=== PATIENT | male | born 1955 | race Caucasian/White ===

== ENCOUNTER 2017-10-04 07:24 | Emergency (ER) | payer MEDICAID ==
[~2017-10-04] VITALS: Ht 165.1 cm; Wt 90.7 kg
[~2017-10-04 07:24] MED LIST: ASMANEX PO; COZ50 PO; FLE10 PO; IND50 PO; NEU300 PO; VENTOLIN HFA INH; VOL50 PO
[2017-10-04 07:29] VITALS: Ht 165.1 cm; Wt 90.7 kg
[2017-10-04 08:32] LABS: BASOPHIL % 0.4 % (0-2); PLATELET COUNT 209 x10^3mcL (130-400); RED CELL DISTRIBUTION WIDTH 13.7 % (11.5-14.5)
[2017-10-04 08:37] LABS: CARBON DIOXIDE 28.8 mmol/L (21-32); CHLORIDE SERUM 107 mmol/L (98-107); GFR1 > 60 mL/min; GLUCOSE SERUM 104 mg/dL (74-106); POTASSIUM SERUM 3.5 mmol/L (3.5-5.1); SODIUM SERUM 142 mmol/L (136-145)
[2017-10-04 08:44] LABS: ALKALINE PHOSPHATASE 94 U/L (46-116); ALT/SGPT 18 U/L (16-63); AST/SGOT 15 U/L (15-37); BILIRUBIN TOTAL 0.4 mg/dL (0.20-1.00); TOTAL PROTEIN, SERUM 6.5 g/dL (6.4-8.2)
[2017-10-04 08:46] LABS: ALBUMIN 3.1 g/dL (3.4-5.0)
[2017-10-04 09:26] VITALS: BP 159/77
== END 2017-10-04 09:26 | disposition home or self-care (01) ==
LOC: ED 07:24
PROVIDERS: Emergency Medicine
DX: M79.1 Myalgia (principal); J45.909 Unspecified asthma, uncomplicated; M06.9 Rheumatoid arthritis, unspecified; Z88.5 Allergy status to narcotic agent; Z88.6 Allergy status to analgesic agent
CPT/HCPCS: 36415; J2270

== ENCOUNTER 2017-11-21 15:23 | Observation (INO) | payer MEDICAID ==
[~2017-11-21] VITALS: Ht 167.6 cm; Wt 107.5 kg
[2017-11-21 16:30] LABS: BASOPHIL % 0.5 % (0-2); PLATELET COUNT 258 x10^3mcL (130-400); RED CELL DISTRIBUTION WIDTH 13.5 % (11.5-14.5)
[2017-11-21 16:43] LABS: CARBON DIOXIDE 30.6 mmol/L (21-32); CHLORIDE SERUM 109 mmol/L (98-107); GFR1 > 60 mL/min; GLUCOSE SERUM 105 mg/dL (74-106); SODIUM SERUM 146 mmol/L (136-145)
[2017-11-21 16:56] LABS: ALKALINE PHOSPHATASE 95 U/L (46-116); ALT/SGPT 27 U/L (16-63); AST/SGOT 13 U/L (15-37); BILIRUBIN TOTAL 0.23 mg/dL (0.20-1.00); T4(THYROXINE) 4.9 ug/dL (4.7-13.3); TOTAL PROTEIN, SERUM 6.6 g/dL (6.4-8.2)
[2017-11-21 17:01] LABS: ALBUMIN 2.9 g/dL (3.4-5.0)
[2017-11-21 18:19] LABS: AMPHETAMINE QUAL UR NONE DETECTED (See below)
[2017-11-21] MEDS ORDERED: NOR10T PO (19:40)
[2017-11-21 20:39] VITALS: BP 190/65
[2017-11-21 21:10] VITALS: BP 190/65
[2017-11-21 23:30] VITALS: BP 153/80
[2017-11-22 05:43] VITALS: BP 147/66
[2017-11-22 07:02] LABS: BASOPHIL % 0.5 % (0-2); PLATELET COUNT 241 x10^3mcL (130-400); RED CELL DISTRIBUTION WIDTH 13.8 % (11.5-14.5)
[2017-11-22 07:57] LABS: T4(THYROXINE) 5.3 ug/dL (4.7-13.3)
[2017-11-22 08:17] VITALS: BP 165/76
[2017-11-22 12:16] VITALS: BP 159/71
[2017-11-22 13:48] LABS: ERYTHROCYTE SED RATE 18 mm/hr (0-20)
[2017-11-22 15:28] VITALS: BP 159/71
[2017-11-22 16:09] VITALS: BP 159/71
[2017-11-23 07:19] LABS: RAPID PLASMA REAGIN Non Reactive (Non Reactive)
[2017-11-23 09:19] LABS: RHEUMATOID ARTHRITIS FACTOR <10.0 IU/mL (0.0-13.9)
== END 2017-11-22 18:43 | disposition home or self-care (01) | DRG 54 ==
LOC: ED 15:23 → DU 19:57
PROVIDERS: Emergency Medicine; Internal Medicine
DX: F07.81 Postconcussional syndrome (principal); G93.41 Metabolic encephalopathy; G62.9 Polyneuropathy, unspecified; I10 Essential (primary) hypertension; J45.909 Unspecified asthma, uncomplicated; Z96.643 Presence of artificial hip joint, bilateral; Z85.46 Personal history of malignant neoplasm of prostate
CPT/HCPCS: 86431; G0378; G0480; J2270; Q0092

== ENCOUNTER 2018-03-12 09:21 | Emergency (ER) | payer OTHER, MEDICAID ==
[~2018-03-12] VITALS: Ht 167.6 cm; Wt 113.4 kg
[~2018-03-12 09:21] MED LIST changes: +NOR10T PO
[2018-03-12 09:31] VITALS: Ht 167.6 cm; Wt 113.4 kg
[2018-03-12 10:30] LABS: BASOPHIL % 0.6 % (0-2); PLATELET COUNT 226 x10^3mcL (130-400); RED CELL DISTRIBUTION WIDTH 13.9 % (11.5-14.5)
[2018-03-12 10:39] LABS: CALCIUM 7.9 mg/dL (8.5-10.1); CARBON DIOXIDE 26.4 mmol/L (21-32); CHLORIDE SERUM 106 mmol/L (98-107); GFR1 > 60 mL/min; GLUCOSE SERUM 90 mg/dL (74-106); POTASSIUM SERUM 3.7 mmol/L (3.5-5.1); SODIUM SERUM 140 mmol/L (136-145)
[2018-03-12 10:44] LABS: ALBUMIN 3.2 g/dL (3.4-5.0); ALKALINE PHOSPHATASE 91 U/L (46-116); ALT/SGPT 37 U/L (16-63); AST/SGOT 25 U/L (15-37); BILIRUBIN TOTAL 0.57 mg/dL (0.20-1.00); HDL CHOLESTEROL 52 mg/dL (40-60); TOTAL PROTEIN, SERUM 7.1 g/dL (6.4-8.2)
[2018-03-12 11:48] LABS: AMPHETAMINE QUAL UR POSITIVE (See below)
[2018-03-12 13:17] VITALS: BP 150/90
== END 2018-03-12 14:31 | disposition home or self-care (01) ==
LOC: ED 09:21
PROVIDERS: Emergency Medicine
DX: F15.10 Other stimulant abuse, uncomplicated (principal); R41.82 Altered mental status, unspecified; L03.211 Cellulitis of face; J45.909 Unspecified asthma, uncomplicated; M19.90 Unspecified osteoarthritis, unspecified site; Z98.890 Other specified postprocedural states; Z88.1 Allergy status to other antibiotic agents; Z88.6 Allergy status to analgesic agent
CPT/HCPCS: 36415; 82962

== ENCOUNTER 2018-09-13 14:21 | Emergency (ER) | payer OTHER, MEDICAID ==
[~2018-09-13] VITALS: Ht 165.1 cm; Wt 84.4 kg
[2018-09-13 14:37] VITALS: Ht 165.1 cm; Wt 84.4 kg
[2018-09-13 16:58] LABS: BASOPHIL % 0.7 % (0-2); PLATELET COUNT 219 x10^3mcL (130-400); RED CELL DISTRIBUTION WIDTH 14.3 % (11.5-14.5)
[2018-09-13 17:10] LABS: CALCIUM 8.5 mg/dL (8.5-10.1); CARBON DIOXIDE 28.2 mmol/L (21-32); CHLORIDE SERUM 108 mmol/L (98-107); CREATININE SERUM 0.7 mg/dL (0.7-1.3); GFR1 > 60 mL/min; GLUCOSE SERUM 99 mg/dL (74-106); POTASSIUM SERUM 4.1 mmol/L (3.5-5.1); SODIUM SERUM 144 mmol/L (136-145)
[2018-09-13 17:22] LABS: ALKALINE PHOSPHATASE 94 U/L (46-116); ALT/SGPT 40 U/L (16-63); AST/SGOT 30 U/L (15-37); BILIRUBIN TOTAL 0.25 mg/dL (0.20-1.00); CHOLESTEROL 149 mg/dL (<200); HDL CHOLESTEROL 49 mg/dL (40-60); MAGNESIUM 2.2 mg/dL (1.8-2.4); T4(THYROXINE) 6.1 ug/dL (4.7-13.3); TOTAL PROTEIN, SERUM 6.7 g/dL (6.4-8.2)
[2018-09-13 17:23] LABS: ALBUMIN 3.1 g/dL (3.4-5.0)
[2018-09-13 18:43] VITALS: BP 161/89
== END 2018-09-13 18:35 | disposition home or self-care (01) ==
LOC: ED 14:21
PROVIDERS: Emergency Medicine
DX: R53.1 Weakness (principal); M19.90 Unspecified osteoarthritis, unspecified site; J45.909 Unspecified asthma, uncomplicated; Z85.830 Personal history of malignant neoplasm of bone; Z85.46 Personal history of malignant neoplasm of prostate; Z88.1 Allergy status to other antibiotic agents; Z88.6 Allergy status to analgesic agent
CPT/HCPCS: 36415; Q0092

== ENCOUNTER 2018-09-15 13:06 | Inpatient (IN) | payer OTHER, MEDICAID ==
[~2018-09-15] VITALS: Ht 167.6 cm; Wt 95.3 kg
[2018-09-15 13:15] VITALS: Ht 167.6 cm; Wt 95.3 kg
--- NOTE | 2018-09-15 13:25 | NUR ---
PT WHEELED TO RM T1 WITH WALKER AND MULTIPLE BAGS OF PERSONAL BELONGINGS THAT APPEAR DIRTY. PT WEARING SANDALS. FEET ARE EXPOSED AND VERY DIRTY. ASKED PT WHAT HIS NAME IS, PT REPLIED "I DON'T KNOW. GIVE ME A BLANKET, I'M COLD." ASKED PT WHAT HIS BIRTHDAY IS, PT STATED "I DON'T KNOW I'M TRYING TO REMEMBER." INFORMED PT I NEED A URINE SAMPLE, PT STATED "I NEED SOME WATER FIRST." PER AGRI BUSINESS AGENT, PT "NOT ANSWERING ANY QUESTIONS." PT APPEARS PURPOSEFUL; EYES OPEN SPONTANEOUSLY; BREATHING IS E/U. PT APPEARS TO BE PURPOSEFULLY NOT ANSWERING HIS NAME AND . HE ANSWERS OTHER QUESTIONS APPROPRIATELY AND VERBALIZES NEEDS APPRORPIATELY.
--- NOTE | 2018-09-15 13:34 | NUR ---
PT REQUESTED URINAL. PT IS UNBUTTONING AND UNZIPPERING PANTS WITHOUT ASSISTANCE.
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
--- NOTE | 2018-09-15 13:37 | NUR ---
ASKED PT WHAT HIS NAME IS, PT REPLIED "LOOK AT MY PAPERWORK." PT ROLLED OVER TO L SIDE, CLOSED HIS EYES AND ASKED FOR A BLANKET.
--- NOTE | 2018-09-15 13:38 | NUR ---
DURING IV INSERTION, PT STATED "PLEASE DON'T LET IT HURT."
--- NOTE | 2018-09-15 13:41 | NUR ---
PT KICKED OFF SANDALS AND ASKED FOR A BLANKET
--- NOTE | 2018-09-15 13:41 | NUR ---
DR SCALES AT BEDSIDE FOR MSE
--- NOTE | 2018-09-15 13:51 | NUR ---
PCXR AT BEDSIDE
[2018-09-15 14:09] LABS: microscopic required? NO
[2018-09-15 14:23] LABS: BASOPHIL % 0.3 % (0-2); PLATELET COUNT 222 x10^3mcL (130-400); RED CELL DISTRIBUTION WIDTH 14.3 % (11.5-14.5)
[2018-09-15 14:32] LABS: CALCIUM 8.2 mg/dL (8.5-10.1); CARBON DIOXIDE 29.6 mmol/L (21-32); CHLORIDE SERUM 107 mmol/L (98-107); CREATININE SERUM 0.9 mg/dL (0.7-1.3); GFR1 > 60 mL/min; GLUCOSE SERUM 102 mg/dL (74-106); POTASSIUM SERUM 3.9 mmol/L (3.5-5.1); SODIUM SERUM 143 mmol/L (136-145)
[2018-09-15 14:37] LABS: ALBUMIN 3.1 g/dL (3.4-5.0); ALKALINE PHOSPHATASE 90 U/L (46-116); ALT/SGPT 39 U/L (16-63); AST/SGOT 13 U/L (15-37); BILIRUBIN TOTAL 0.3 mg/dL (0.20-1.00); TOTAL PROTEIN, SERUM 6.5 g/dL (6.4-8.2)
--- NOTE | 2018-09-15 15:00 | NUR ---
PT SLEEPING, CHEST RISE EASY AND REGULAR; NAD NOTED
[2018-09-15 15:36] LABS: urine erythrocyte NEGATIVE (NEGATIVE)
[2018-09-15 15:45] LABS: AMPHETAMINE QUAL UR NONE DETECTED (See below)
--- NOTE | 2018-09-15 15:59 | NUR ---
PT SLEEPING, REMAINS ON FULL MONITORS. CHEST RISE EASY AND REGULAR. NAD NOTED
--- NOTE | 2018-09-15 16:12 | NUR ---
REPORT GIVEN TO DIAMOND WOOD
--- NOTE | 2018-09-15 16:17 | NUR ---
REPORT FROM NINA GAYLE TO ASSUME CARE OF PT
--- NOTE | 2018-09-15 16:39 | NUR ---
PT MEDICATED PER ORDER. PT STS HE DOES NOT KNOW HIS NAME BUT CONFIRMED HIS NAME AND WHEN TOLD. PT VERBALIZED UNDERSTANDING OF MEDICATION TEACHING. PT REQUESTED URINAL. NO S/S OF DISTRESS. RESP E/U. WILL CONTINUE TO MONITOR.
--- NOTE | 2018-09-15 17:16 | NUR ---
PT MEDICATED PER ORDER. PT ABLE TO VERBALIZED NAME AND . VERBALIZED UNDERSTANDING OF MEDICATION TEACHING SEE EMAR FOR DETAILS.
[2018-09-15 17:27] LABS: T3 TOTAL 1.04 ng/mL
[2018-09-15 17:36] LABS: CHOLESTEROL/HDL RATIO 3.5; PHOSPHOROUS 3.6 mg/dL (2.5-4.9)
--- NOTE | 2018-09-15 17:49 | NUR ---
REPORT GIVEN TO NINA CARTER TO ASSUME CARE OF PT
--- NOTE | 2018-09-15 17:57 | NUR ---
PT TRANSFERRED TO TELE FLOOR ACCOMPANIED BY NURSE AND EMT. NO S/S OF DISTRESS. RESP E/U. IV SITE PATENT NO S/S OF INFILTRATION. RN MADE AWARE OF MEDICATION STILL INFUSING.
[2018-09-15 18:01] LABS: FREE T4 0.8 ng/dL (0.76-1.46); T4(THYROXINE) 5.7 ug/dL (4.7-13.3)
[2018-09-15 18:27] VITALS: BP 169/51
--- NOTE | 2018-09-15 18:30 | NUR ---
RECEIVED PT FROM ED VIA KAITLYN. ORIENTED PT TO ROOM AND SURROUNDINGS. IV NOTED TO RH PATENT AND INTACT. TELE 5 PLACED ON PT READING SBR. INSTRUCTED PT ON THE USE OF CALL LIGHT FOR ASSISTANCE. ENDORSED PT TO PRIMARY NURSE RAUL
--- NOTE | 2018-09-15 18:50 | NUR ---
PT RESTING IN BED, AOX4, RESP E/U ON RA. PT REPORTED GENERALIZED TIGHTNESS THROUGHTOUT BODY W/ FEELING SOB AT TIMES, DENIES PAIN, OTHERWISE NO ACUTE DISTRESS NOTED AT THIS TIME. COMFORT MEASURES IMPLMENTED, HOB ELEVATED 30 DEGREES. REQUESTED FOR FOOD, ON REGULAR DIET, SANDWICHES PROVIDED. BED IN LOWEST POSITION AND CALL LIGHT WITHIN REACH. WILL ENDORSE TO ONCOMING NURSE.
--- NOTE | 2018-09-15 19:30 | NUR ---
RECIEVED PT IN NO ACUTE DISTRESS. AOX2-3. TELE #5, HR 55. BREATHING E/U ON RA, DENIES SOB. IV TO RH, NO REDNESS/SWELLING. BED IN LOWEST POSITION, 2 SIDE RAILS UP, CALL LIGHT IN REACH. INSTRUCTED TO CALL FOR ASSISTANCE.
[2018-09-15 19:57] VITALS: BP 148/72
--- NOTE | 2018-09-16 02:27 | NUR ---
RESTING IN BED WITH EYES CLOSED. BREATHING E/U. NO ACUTE DISTRESS NOTED. WILL CONTINUE TO MONITOR.
[2018-09-16 05:53] VITALS: BP 173/79
--- NOTE | 2018-09-16 07:02 | NUR ---
DR. MATTSON NOTIFIED OF BP 172/79 HR 45. MEDICATED WITH NEW ORDER HYDRALZINE PO PER EMAR. NO ACUTE DISTRESS NOTED WILL ENDORSE TO ONCOMING RN
--- NOTE | 2018-09-16 07:10 | NUR ---
RECEIVED REPORT FROM DESMOND WOOD. PATIENT SLEEPING COMFORTABLY IN BED WITH ALL NEEDS MET. IV TO RT HAND IS PATENT AND INFUSING NS @ 75 ML/HR. NO REDNESS OR PAIN. TELE # [address] NO INDICATION OF CHEST PAIN. PT ON ROOM AIR. NO DISTRESS NOTED. ALL QUESTIONS AND CONCERNS ADDRESSED.
[2018-09-16 07:25] VITALS: BP 183/81
[2018-09-16 10:34] VITALS: BP 156/70
[2018-09-16 11:50] VITALS: BP 163/93
[2018-09-16 14:54] LABS: BASOPHIL % 0.5 % (0-2); PLATELET COUNT 207 x10^3mcL (130-400); RED CELL DISTRIBUTION WIDTH 14.4 % (11.5-14.5)
[2018-09-16 15:09] LABS: CALCIUM 8.3 mg/dL (8.5-10.1); CHLORIDE SERUM 109 mmol/L (98-107); CREATININE SERUM 1.1 mg/dL (0.7-1.3); GFR1 > 60 mL/min; GLUCOSE SERUM 118 mg/dL (74-106); MAGNESIUM 2.1 mg/dL (1.8-2.4); PHOSPHOROUS 3.2 mg/dL (2.5-4.9); SODIUM SERUM 145 mmol/L (136-145)
[2018-09-16 16:30] VITALS: BP 155/65
--- NOTE | 2018-09-16 18:00 | NUR ---
SPOKE WITH DR PHILLIPS TO REQUEST DIET ORDER AND AM LABS FOR 09/17/18 AFTER TRANSFER TO [facility]. ALSO NOTIFIED OF PT BP 155/65. DR PHILLIPS OK.
--- NOTE | 2018-09-16 19:30 | NUR ---
REPORT GIVEN TO NEREYDA WOOD. PATIENT RESTING COMFORTABLY IN BED. ALL NEEDS MET. SALINE LOCK TO RT HAND IS PATENT AND INTACT. NO REDNESS OR PAIN. PT ON ROOM AIR. NO DISTRESS NOTED. ALL QUESTIONS AND CONCERNS ADDRESSED.
--- NOTE | 2018-09-16 19:30 | NUR ---
RECIEVED PATIENT AT START OF SHIFT A.O X4, NO SOB ON RA, LUNGS DIMINISHED BILATERALLY. MED-SURG, SOME EDEMA NOTED TO RIGHT HAND, IV TO RH IS SALINE LOCKED, NO ERYTHEMA, FLUSHED AND PATENT. SCAB ON RH NOTED. BLE TRACE EDEMA. ABRASION TO L LEG NOTED. ISLAND DRESSING APPLIED. BS ACTIVE. ABDOMEN IS FIRM AND ROUND. BED LOCKED AND IN LOWEST POSIITON. CALL LIGHT AND BEDSIDE TABLE WITHIN REACH. SAFETY AND USE OF CALL LIGHT REINFORCED.
--- NOTE | 2018-09-16 20:32 | NUR ---
PATIENT REPORTING BLE LEG PAIN RATED 6/10. WILL MEDICATE PER EMAR.
[2018-09-16 20:59] VITALS: BP 147/72
--- NOTE | 2018-09-16 21:32 | NUR ---
PATIENT GIVEN TYLENOL PER EMAR FOR REPORT OF 6/10 LEG PAIN.
--- NOTE | 2018-09-17 01:23 | NUR ---
PATIENT GIVEN NORCO PER EMAR FOR REPORT OF 6/10 PAIN TO HIS LEGS.
[2018-09-17 05:47] VITALS: BP 143/63
--- NOTE | 2018-09-17 06:25 | NUR ---
PATIENT SLEPT WELL THROUGH THE NIGHT. DENIES PAIN THIS MORNING. IV INFUSING ZOSYN PER EMAR WITHOUT ERYTHEMA OR INFILTRATION. BED LOCKED AND IN LOWEST POSITION. CALL LIGHT AND BEDSIDE TABLE WITHIN REACH. WILL ENDORSE CARE TO DAYSHIFT NURSE.
[2018-09-17 07:03] LABS: BASOPHIL % 0.7 % (0-2); PLATELET COUNT 217 x10^3mcL (130-400); RED CELL DISTRIBUTION WIDTH 14.2 % (11.5-14.5)
--- NOTE | 2018-09-17 07:15 | NUR ---
RECEIVED PT IN BED, AXOX4, MARTINIQUAIS, VERBAL, CALM AND COPPERATIVE, PERRLA, NO REDNESS/DRAINAGE, NO FACIAL DROOP/SLURRED SPEECH, REPORTED NO PAIN/BRYSON/PRESSURE/CP/DISCOMFORT, REPORTED NO N/V/D AT THIS TIME, ON RA, LUNGS DIM BLL, CRACKLE TO LL, IN NO ACUTE RESP DISTRESS, CHEST RISE SYMMETRICALLY, MED-SURG, AMB WITH ASSIST, ABLE TO MOVE ALL EXTREMITIES, ABD ROUND AND NON-TENDER TO TOUCH, RELIEF WITH REPOSITION AND RELAXATION, CONTINENT, TO BACK AND CHEST, SKIN D/W/I, ABRASION TO LE, DRESSING C/D/I, MULTIPLES SCABS TO RUE, IV TO RAC PATENT AND INFILTRATION WELL, PALP PULSES, CAP REFIL < 2 SECS, ALL NEEDS MET, SAFETY PRECAUTION FOLLOWED, CONTINUE TO MONITOR
[2018-09-17 07:20] LABS: CALCIUM 8.3 mg/dL (8.5-10.1); CARBON DIOXIDE 27.6 mmol/L (21-32); CHLORIDE SERUM 108 mmol/L (98-107); CREATININE SERUM 0.9 mg/dL (0.7-1.3); GFR1 > 60 mL/min; GLUCOSE SERUM 101 mg/dL (74-106); MAGNESIUM 2.1 mg/dL (1.8-2.4); PHOSPHOROUS 3.5 mg/dL (2.5-4.9); SODIUM SERUM 143 mmol/L (136-145)
[2018-09-17 08:18] VITALS: BP 125/66
--- NOTE | 2018-09-17 09:54 | NUR ---
PT IN BED, IN NO ACUTE RESP DISTRESS, AM MED GIVEN PER MD ORDER VIA EMAR, TAKEN WELL, NO ASE NOTED AT THIS TIME, ALL NEEDS MET, SAFETY PROTOCOL FOLLOWED, CONTINUE TO MONITOR
--- NOTE | 2018-09-17 14:00 | NUR ---
PT SLEEPING IN BED, LYING TO (L) SIDE, IN NO ACUTE RESP DISTRESS, ALL NEEDS MET AT THIS TIME, SAFETY PROTOCOL FOLLOWED, CONTINUE TO MONITOR
[2018-09-17 16:51] VITALS: BP 131/59
--- NOTE | 2018-09-17 18:03 | NUR ---
PT IN BED, AXOX4, VERBAL, IN NO ACUTE RESP DISTRESS, DENIED PAIN/CP/PRESSURE, DENIED N/V/D/DIZZINESS, NO FACIAL DROOP/SLURRED SPEECH NOTED, RESP EVEN AND NON-LABORED, CHEST RISE SYMMETRICALLY, ABD ROUND AND NON-TENDER TO TOUCH, BS ACTIVE X 4, ABLE TO MOVE ALL EXTREMITIES, SKIN D/W/I, PALP PULSES, CAP REFILL < 2 SECS, AMBULATORY WITH ASSIST, CONTINENT, ALL NEEDS MET AT THIS TIME, SAFETY PROTOCOL FOLLOWED, WILL ENDORSE TO NEXT COMING RN
--- NOTE | 2018-09-17 19:20 | NUR ---
RECEIVED PT LAYING IN BED, NO ACUTE DISTRESS OBSERVED, DENIES PAIN OR DISCOMFORT AT THIS TIME. AA/OX4, ABLE TO MAKE NEEDS KNOWN, SPEECH CLEAR AND APPROPRIATE. MED-SURG, NO TELE, NO CP. PULSES PRESENT AND EQUAL THROUGHOUT, NO EDEMA, PT ON HEP SQ THERAPY. BREATHING ON RA, EVEN AND UNLABORED, DENIES SOB OR DYSPNEA, LUNGS DIM TO BASES, O2 SAT 98% ABD ROUND AND SOFT WITH ACTIVE BOWEL SOUNDS, NO N/V/D. FREELY VOIDS URINE. GENERALIZED WEAKNESS, FWW AT BEDISDE AND WITHIN REACH. ABRASION TO LLE WITH MILD ERYTHEMA, ISLAND DRESSING IN PLACE, CDI. IV TO RW IN PLACE, DRY, PATENT, INTACT, S/L AT THIS TIME, NO PAIN, REDNESS OR SWELLING WHEN FLUSHED WITH NS. COMFORT AND SAFETY MEASURES IN PLACE. ALL NEEDS ASSESSED AND ATTENDED TO. CALL LIGHT WITHIN REACH. WILL CONTINUE TO MONITOR
[2018-09-17 20:46] VITALS: BP 157/74
--- NOTE | 2018-09-17 21:30 | NUR ---
PT C/O 10/08 MID CHEST/EPIGATRIC PAIN AND REQUESTING PAIN MED AT THIS TIME. MEDICATED WITH PRN NORCO PER EMAR.
--- NOTE | 2018-09-18 02:49 | NUR ---
PT LAYING IN BED, BREATHING EVEN AND UNLABORED, NO ACUTE DISTRESS OBSERVED. CALL LIGHT WITHIN REACH. WILL CONTINUE TO MONITOR
[2018-09-18 05:22] VITALS: BP 141/70
--- NOTE | 2018-09-18 06:13 | NUR ---
NO SIGNIFICANT CHANGES TO REPORT, PT COMPLIED WITH NURSING CARE THROUGHOUT THE SHIFT WITH NO ACUTE EVENTS OVERNIGHT. NO ACUTE DISTRESS OBSERVED AT THIS TIME, BREATHING EVEN AND UNLABORED, AROUSABLE TO VERBAL STIMULI. COMFORT AND SAFETY MEASURES MAINTAINED. ALL NEEDS ASSESSED AND ATTENDED TO. CALL LIGHT WITHIN REACH. WILL CONTINUE TO MONITOR AND ENDORSE CARE TO DAY SHIFT NURSE
--- NOTE | 2018-09-18 06:17 | NUR ---
NO SIGNIFICANT CHANGES TO REPORT, PT REMAINS AGITATED AT TIMES. NO ACUTE DISTRESS OBSERVED AT THIS TIME, BREATHING EVEN AND UNLABORED, AROUSABLE TO VERBAL STIMULI. COMFORT AND SAFETY MEASURES MAINTAINED. ALL NEEDS ASSESSED AND ATTENDED TO. CALL LIGHT WITHIN REACH. WILL CONTINUE TO MONITOR AND ENDORSE CARE TO DAY SHIFT NURSE
[2018-09-18 06:47] LABS: BASOPHIL % 0.6 % (0-2); PLATELET COUNT 221 x10^3mcL (130-400); RED CELL DISTRIBUTION WIDTH 14.3 % (11.5-14.5)
[2018-09-18 07:01] LABS: CALCIUM 8.4 mg/dL (8.5-10.1); CARBON DIOXIDE 26.9 mmol/L (21-32); CHLORIDE SERUM 108 mmol/L (98-107); GFR1 > 60 mL/min; GLUCOSE SERUM 98 mg/dL (74-106); MAGNESIUM 2.2 mg/dL (1.8-2.4); PHOSPHOROUS 3.4 mg/dL (2.5-4.9); POTASSIUM SERUM 4.1 mmol/L (3.5-5.1); SODIUM SERUM 144 mmol/L (136-145)
--- NOTE | 2018-09-18 07:50 | NUR ---
RECEIVED PT IN BED, AXOX4, AUSTRIAN, VERBAL, CALM AND COPPERATIVE W/ POC, PERRLA, NO REDNESS/DRAINAGE, NO FACIAL DROOP/SLURRED SPEECH, REPORTED NO PAIN/BRYSON/PRESSURE/CP/DISCOMFORT, REPORTED NO N/V/D AT THIS TIME, ON RA, LUNGS DIM BLL, CRACKLE TO LL, COUGH X 1 W/ SPUTUM, THIN CONSISTENCY, SLIGHTLY YELLOW, NO FOUL ODOR, IN NO ACUTE RESP DISTRESS, CHEST RISE SYMMETRICALLY, MED-SURG, AMB WITH ASSIST, ABLE TO MOVE ALL EXTREMITIES, ABD ROUND AND NON-TENDER TO TOUCH, RELIEF WITH REPOSITION AND RELAXATION, CONTINENT, TO BACK AND CHEST, SKIN D/W/I, ABRASION TO LE, DRESSING C/D/I, MULTIPLES SCABS TO RUE, IV TO RAC PATENT AND INFILTRATION WELL, PALP PULSES, CAP REFIL < 2 SECS, ALL NEEDS MET AT THIS TIME, CALL LIGHT IN REACH, BED AT LOW POSITION, RAILS X 2, CONTINUE TO MONITOR
[2018-09-18 09:14] VITALS: BP 124/44
--- NOTE | 2018-09-18 09:41 | NUR ---
PT IN BED, IN NO ACUTE RESP DISTRESS, AM MEDS GIVEN PER MD ORDER VIA EMAR, TAKEN WELL, NO ASE NOTED AT THIS TIME, AL NEEDS MET, SAFETY PROTOCOL FOLLOWED, CONTINUE TO MONITOR
--- NOTE | 2018-09-18 14:00 | NUR ---
PT IN BED, AXOX4, IN NO ACUTE RESP DISTRESS, NO COUGH AT THIS TIME, ALL NEEDS ADDRESSED, SAFETY PROTOCOL FOLLOWED, CONTINUE TO MONITOR
[2018-09-18 17:34] VITALS: BP 151/79
--- NOTE | 2018-09-18 18:00 | NUR ---
PT IN BED, RESTING WITH EYE CLOSED, AXOX4, VERBAL, IN NO ACUTE RESP DISTRESS, DENIED PAIN/CP/PRESSURE, DENIED N/V/D/DIZZINESS, NO FACIAL DROOP/SLURRED SPEECH NOTED, RESP EVEN AND NON-LABORED, CHEST RISE SYMMETRICALLY, ABD ROUND AND NON-TENDER TO TOUCH, BS ACTIVE X 4, ABLE TO MOVE ALL EXTREMITIES, SKIN D/W/I, PALP PULSES, CAP REFILL < 2 SECS, AMBULATORY WITH ASSIST, CONTINENT, ALL NEEDS ADDRESSED AT THIS TIME, SAFETY PROTOCOL FOLLOWED, CALL LIGHT IN REACH, BED AT LOW POSITION, RAILS X 2, WILL ENDORSE TO NEXT COMING RN
--- NOTE | 2018-09-18 19:30 | NUR ---
RECIEVED PT FROM DAY NURSE. PT RESTING IN BED COMFORTABLY. COMPLAINING OF 8/10 LEG PAIN. A/O X4, CALM AND COOPERATIVE. PALPABLE PULSES, NO EDEMA NOTED. BREATHING EVEN AND UNLABORED ON RA, DENIES SOB. BOWEL SOUNDS ACTIVE X4, TENDERNESS TO PALPATION. ABRASION TO LLE COVERED WITH ISLAND DRESSING CDI. RW IV, CDI. CALL LIGHT WITHIN REACH, BED AT LOWEST POSITION. WILL CONTINUE TO MONITOR.
[2018-09-18 20:46] VITALS: BP 136/62
--- NOTE | 2018-09-18 21:00 | NUR ---
PT COMPLAINING OF LEG PAIN 10/08. MEDICATED WITH NORCO PER ORDER. WILL CONTINUE TO MONITOR.
--- NOTE | 2018-09-19 | NUR ---
PT RESTING IN BED COMFORTABLY WITH EYES CLOSED. NO S/S OF PAIN AT THIS TIME. BREATHING EVEN AND UNLABORED. BED AT LOWEST POSITION. CALL LIGHT WITHIN REACH. WILL CONTINUE TO MONITOR.
[2018-09-19 05:19] VITALS: BP 132/57
--- NOTE | 2018-09-19 05:35 | NUR ---
I HAVE REVIEWED THE DATA COLLECTION BY NINA CLAY: CRISTINA GILL ENTERED ON 09/18-09/19 I CONCUR WITH THE DATA AND ANY EXCEPTIONS OR COMMENTS ARE LISTED BELOW:
[2018-09-19 06:32] LABS: BASOPHIL % 0.8 % (0-2); PLATELET COUNT 204 x10^3mcL (130-400); RED CELL DISTRIBUTION WIDTH 14.5 % (11.5-14.5)
[2018-09-19 06:48] LABS: CALCIUM 8.6 mg/dL (8.5-10.1); CARBON DIOXIDE 29.5 mmol/L (21-32); CHLORIDE SERUM 110 mmol/L (98-107); GFR1 > 60 mL/min; GLUCOSE SERUM 105 mg/dL (74-106); POTASSIUM SERUM 5.4 mmol/L (3.5-5.1); SODIUM SERUM 145 mmol/L (136-145)
--- NOTE | 2018-09-19 06:51 | NUR ---
PT RESTING IN BED COMFORTABLY. NO S/S OF PAIN AT THIS TIME. BREATHING EVEN AND UNLABORED ON RA. NO SIGNIFICANT CHANGES THIS SHIFT. BED AT LOWEST POSITION. CALL LIGHT WITHIN REACH. WILL ENDORSE TO DAY NURSE.
--- NOTE | 2018-09-19 08:01 | NUR ---
HANDOFF REPORT RECEIVED. PATIENT ASLEEP ON ROUNDS. RR-16/MIN. CALL KOVACS WITHIN REACH. BED LOW AND LOCKED.
[2018-09-19 09:24] VITALS: BP 110/68
[2018-09-19] MEDS ORDERED: LIO10 PO (11:12)
[2018-09-19] MEDS ORDERED: NOR5 PO (11:13)
[2018-09-19] MEDS ORDERED: ZITHROMAX TRI-500 MG PO (11:32)
--- NOTE | 2018-09-19 12:12 | NUR ---
DENIES ANYU DYSPNEA OR DYSPNEA. CALL KOVACS WITHIN REACH.
[2018-09-19 13:26] VITALS: BP 110/68
--- NOTE | 2018-09-19 14:00 | NUR ---
SEEN BY SURVEY TECHNICIAN TODAY. PATIENT WANTED TO SPEAK WITH BILLET BED OPERATOR ONLY. CHARGE NURSE BECK MADE AWARE.
--- NOTE | 2018-09-19 17:27 | NUR ---
DENIES ANY DYSPNEA OR PAIN. WATCHING TV. CALL KOVACS WITHIN REACH.
[2018-09-19 17:47] VITALS: BP 176/81
[2018-09-19 18:20] VITALS: BP 136/71
--- NOTE | 2018-09-19 19:15 | NUR ---
HANDOFF REPORT GIVEN TO NINA GUAJARDO.
--- NOTE | 2018-09-19 20:00 | NUR ---
RECEIVED PT IN BED, RESTING. ALERT AND ORIENTED. ABLE TO VERBALIZE NEEDS. RESP. EVEN AND UNLABORED. ON ROOM AIR, NO ACUTE DISTRESS NOTED. DENIES SOB. AFEBRILE AND VITAL SIGNS STABLE.HL TO RFA, INTACT AND PATENT. ABLE TO MOVE ALL EXTS. NO COMPLAINTS OF PAIN OR ANY DISCOMFORT AT THIS TIME. CALL LIGHT WITHIN REACH. WILL CONTINUE TO MONITOR.
[2018-09-19 20:43] VITALS: BP 98/62
--- NOTE | 2018-09-19 21:25 | NUR ---
COMPLAINED OF GEN. BODY PAIN,08/08, REQUESTING PAIN MED, MEDICATED WITH NORCO PO ORDERED. WILL CONTINUE TO MONITOR.
--- NOTE | 2018-09-19 23:40 | NUR ---
IV SITE LEAKING, DISCONTINUED. NEW IV SITE RE-INSERTED TO RT FORE ARM WITH #20G. WILL CONTINUE TO MONITOR.
--- NOTE | 2018-09-19 23:44 | NUR ---
NO COMPLAINTS NOTED AT THIS TIME. DOOZING OFF AND ON. CALL LIGHT WITHIN REACH. WILL CONTINUE TO MONITOR.
--- NOTE | 2018-09-20 02:00 | NUR ---
NO COMPLAINTS NOTED AT THIS TIME. RESTING QUIETLY IN BED, WITH EYES CLOSED, APPEARS ASLEEP, EASILY AROUSABLE.RESP. EVEN AND UNLABORED. NO ACUTE DISTRESS NOTED. CALL LIGHT WITHIN REACH. WILL CONTINUE TO MONITOR.
[2018-09-20 05:39] VITALS: BP 151/61
--- NOTE | 2018-09-20 06:44 | NUR ---
NO COMPLAINTS NOTED AT THIS TIME. DUE MEDS GIVEN ORDERED, MARTHA. WELL. AFEBRILE AND VITAL SIGNS STABLE. DENIES PAIN OR ANY DISCOMFORT. RESP. EVEN AND UNLABORED. ON ROOM AIR, NO ACUTE DISTRESS NOTED. WILL ENDORSE TO INCOMING NURSE.
--- NOTE | 2018-09-20 07:15 | NUR ---
RECEIVED PT FROM NIGHT NURSE. PT IS LAYING DOWN IN BED WITH HOB UP RESTING. RESPIRATIONS EVEN AND UNLABORED ON ROOM AIR. PT LOOKS TO BE IN NO ACUTE DISTRESS AT THIS TIME AND DENIES ANY PAIN. IV SITE PATENT WITH NO SIGNS OF ERYTHEMA OR SWELLING WITH IV H/L. BED IN LOWEST POSITION, CALL LIGHT WITHIN REACH. WILL CONITNUE TO MONITOR.
[2018-09-20 07:41] LABS: BASOPHIL % 0.6 % (0-2); PLATELET COUNT 209 x10^3mcL (130-400)
[2018-09-20 07:54] LABS: RED CELL DISTRIBUTION WIDTH 14.8 % (11.5-14.5)
[2018-09-20 08:44] VITALS: BP 158/78
--- NOTE | 2018-09-20 09:35 | NUR ---
ASSISTED PT TO THE BATHROOM. PT STATED THAT HE FEELS DIZZY WHEN STANDING UP AND FEELS WEAKNESS TO THE LEFT LEG. PT SAT ON THE EDGE OF THE BED BEFORE AMBULATING. BLOOD PRESSURE WHEN SITTING ON THE EDGE OF THE BED IS 175/98. ASSISTED PT BACK TO BED AND PT DENIES ANY DIZZINESS AT THIS TIME BUT STILL COMPALINS OF WEAKNESS. MADE PT COMFORTABLE IN BED. CALL LIGHT WITHIN REACH. WILL CONITNUE TO MONITOR.
--- NOTE | 2018-09-20 14:25 | NUR ---
PT REQUESTING TO GO TO THE RESTROOM. ASSISTED PT TO THE RESTROOM, PT STATES FEELING DIZZY UPON AMBULATION. HELPED PT BACK TO BED AND BLOOD PRESSURE WHEN LAYING DOWN IN 181/77, MAP 112, HR: 62. MADE PT COMFORTABLE IN BED. WILL MEDICATE ACCORDING TO EMAR FOR BLOOD PRESSURE.
--- NOTE | 2018-09-20 15:30 | NUR ---
IV SITE IS SWOLLEN AND PT IS COMPLAINING OF PAIN TO THE IV SITE. IV FLUSHING WELL, PT IS REQUESTING TO HAVE IV REMOVED AND NEW IV INSERTED. REMOVED IV CATHETER, CATHETER FULLY INTACT. WILL REINSERT IV.
[2018-09-20 16:20] VITALS: BP 142/72
[2018-09-20 18:12] VITALS: BP 142/72
--- NOTE | 2018-09-20 18:45 | NUR ---
PT IS LAYING DOWN IN BED WITH HOB UP RESTING. PT LOOKS TO BE IN NO ACUTE DISTRESS AT THIS TIME. RESPIRATIONS EVEN AND UNLABROED ON ROOM AIR. BED IN LOWEST POSITION, CALL LIGHT WITHIN REACH. WILL ENDORSE TO ONCOMING SHIFT.
--- NOTE | 2018-09-20 20:15 | NUR ---
PATIENT RECEIVED RESTING IN BED, RESPIRATION EVEN AND UNLABORED, ON ROOM AIR. SALINE LOCK TO LEFT FOREARM. DENIES PAIN AT THIS TIME. VOIDING FREELY WITHOUT DIFFICULTY. GENERALIZED WEAKNESS. C/O DIZZINESS DURING AMBULATION. DRY ABRASION TO BLE. LBM 09/20/2018. WILL CONTINUE TO MONITOR.
--- NOTE | 2018-09-20 21:04 | NUR ---
PATIENT COMPLAINED OF THROBBING HEADACHE, 8/10 AND SHARP/ACHING LEG PAIN, 8/10. MEDICATED WITH NORCO 7.5/325 MG PO ORDERED. WILL CONTINUE TO MONITOR.
[2018-09-20 21:05] VITALS: BP 109/58
--- NOTE | 2018-09-21 05:41 | NUR ---
PATIENT RESTING IN BED. RESPIRATION EVEN AND UNLABORED, ON ROOM AIR. IV SITE TO LEFT FOREARM PATENT AND INTACT. DENIES PAIN AT THIS TIME. ASSISTED WITH NEEDS. SAFETY OBSERVED. PLACED BED IN THE LOWEST POSITION. PLACED CALL LIGHT WITHIN REACH AT ALL TIMES.
[2018-09-21 05:49] VITALS: BP 128/53
--- NOTE | 2018-09-21 07:20 | NUR ---
RECEIVED PT FROM SHIFT NURSE A/OX3 SITTING UP IN BED. NO C/O OF RT HAND PAIN. IV INTACT AND PATENT. BED IN LOW POSITION. CALL LIGHT WITHIN REACH. WILL CONTINUE TO MONITOR.
--- NOTE | 2018-09-21 08:15 | NUR ---
MADE LYNDSEY [place] OF K+ 5.4.
[2018-09-21 09:35] VITALS: BP 159/68
--- NOTE | 2018-09-21 10:21 | NUR ---
PT ASLEEP BUT AROUSABLE. CALL LIGHT WITHIN REACH. WILL CONTINUE TO MONITOR.
[2018-09-21 13:16] VITALS: BP 156/80; BP 159/68
--- NOTE | 2018-09-21 13:41 | NUR ---
Initial Nutrition Assessment: 250/B WALKER CRUM MR Dx: PNA PMHx: HTN, Neuropathy, Cancer/Leukemia, H/o of concussion in 2018 PSHx: None Labs: K 5.4H Meds: Colace, morphine sulfate, Tylenol, Zofran, zosyn Diet: regular PO Intake: (09/21) 100%, (09/20) 100% all meals, (09/19) 100% all meals Ht: 167.64 cm (66") Wt: 95 kg (209#) BMI: 33.9 kg/m2 Bed scale: 95 kg IBW:142# (56 kg) %IBW: 147 UBW: unable to access Age: 63/M Food Allergies: NKFA Skin: scab to LLE Camron: 20 Edema: none GI: Last BM: 09/20 Per H&P, Pt is a 63 YOM with PMH of HTN, head concussion; possible cancer came to the emergency department with altered mental status. Patient complaint that he has back, legs and R arm pain. Pt states that pain is chronic and secondary to his bone cancer. Pain is 7/10 in [address] RDN Visit (09/21): Patient was sleeping. Per NINA Clarke, patient does not have any N/V/D/C and has good appetite. Problem with: N/V/D/C: none per NINA Clarke Problems with: Chewing/Swallowing: none Current appetite: good per RN Recent wt change: unable to access %wt change: N/A Vitamin/Supplement use: unable to access Special diet at home: unable to access Physical activity: unable to access Nutrition education given: Not appropriate at this time as patient was sleeping. Food-drug interactions: Colace- high fiber w/7169-8814 ml fluids Education given: No Estimated Nutritional Needs Based on adjusted body weight 66 kg Energy: 1468-6853 kcal/d (25-30 kcal/kg) Protein: 66-79 g/d (1.0-1.2 g/kg) - preserve LBM Fluid: 1015-7392 ml/d (1 ml/kcal) or per doctor Nutrition Diagnosis 1. Increased energy expenditure related to pulmonary dysfunction as evidenced by PNA. Intervention 1. Recommend continuing regular diet. Monitor/Evaluate Goal: PO intake at least 75% of estimated needs Monitor: PO intake, Labs, GI function F/U in 7 days as low risk 09/28
--- NOTE | 2018-09-21 13:41 | NUR ---
1. Recommend continuing regular diet.
--- NOTE | 2018-09-21 13:45 | NUR ---
PT SITTING UP IN BED WATCHING TV. CALL LIGHT WITHIN REACH. WILL CONTINUE TO MONITOR.
--- NOTE | 2018-09-21 15:41 | NUR ---
PT RESTING IN BED. CALL LIGHT WITHIN REACH. WILL CONTINUE TO MONITOR.
[2018-09-21 17:55] VITALS: BP 149/75
--- NOTE | 2018-09-21 18:02 | NUR ---
PT SITTING ON EDGE OF BED EATING DINNER. DENIES C/O OF RT HAND PAIN. IV INTACT AND PATENT. FALL PERCAUTIONS IN PLACE. BED IN LOW POSITION. CALL LIGHT WITHIN REACH. WILL BE ENDORSED.
[2018-09-21 20:08] VITALS: BP 112/49
--- NOTE | 2018-09-21 20:12 | NUR ---
AAO X4 VERBAL DENIES HEADACHE OR DIZZINESS, AMBULATES TO THE BATHROOM USING FWW, NO DISTRESS OCC INSPIRATORY WHEEZES CEDRIC DURING PHYSICAL EXERTION, NO COUGHING, PT KEEP ASKING FOR FOOD, STATED "I CAN EAT WHAT I WANT" EXPLAINED RE DIETARY COMPLIANCE, PT INSISTED TO HAVE SANDWICH, IN WHICH PROVIDED PER REQUEST, SHIFT ASSESSMENNT DONE ATTENDED NEEDS CALL LIGHT AT REACH, CONT TO MONITOR.
--- NOTE | 2018-09-21 22:01 | NUR ---
PT REFUSED HEPARIN AND COLACE MEDICATION PT STATED THAT NOT TONIGHT HE DONT NEED IT, EXPLAINED USES OF THE MEDICATION AND STRESSED COMPLIANCE OF TAKING MEDICATION PER MD'S ORDER, PT STILL REFUSING, RESPECT PT'S RIGHTS, MD AWARE NNO.
[2018-09-22 05:37] VITALS: BP 194/86
--- NOTE | 2018-09-22 06:17 | NUR ---
PT AWAKE ASKING FOR SNACKS, NEEDS ATTENDED, PT NO C/O PAIN, NO DISTRESS, DUE ATB ZOSYN ADMIN ORDERED NO ADV REACTION, VOIDING FREELY YELLOW COLORED URINE OUTPUT, V/S ON RANGE, ADDRESSED ALL CONCERNS CONT TO MONITOR.
--- NOTE | 2018-09-22 07:04 | NUR ---
RECEIVED PT FROM SHIFT NURSE SITTING UP IN BED RESTING. NO ACUTE DISTRESS NOTED. DENIES C/O OF RT HAND PAIN. IV INTACT AND PATENT. CALL LIGHT WITHIN REACH. WILL CONTINUE TO MONITOR.
[2018-09-22 08:32] VITALS: BP 194/86
[2018-09-22 09:17] VITALS: BP 156/80
--- NOTE | 2018-09-22 09:21 | NUR ---
PT ASLEEP BUT AROUSABLE. RESP EVEN AND UNLABORED ON RA. CALL LIGHT WITHIN REACH. WILL CONTINUE TO MONITOR
--- NOTE | 2018-09-22 12:30 | NUR ---
PT SITTING UP IN BED EATING LUNCH. NO C/O OF PAIN OR DISCOMFORT. CALL LIGHT WITHIN REACH. WILL CONTINUE TO MONITOR.
--- NOTE | 2018-09-22 15:27 | NUR ---
PT ASLEEP IN BED. NO ACUTE DISTRESS NOTED. CALL LIGHT WITHIN REACH. WILL CONTINUE TO MONITOR.
[2018-09-22 17:11] VITALS: BP 160/74
--- NOTE | 2018-09-22 18:05 | NUR ---
PT SITTING UP IN BED WATCHING TV. APPEARS IN NO ACUTE DISTRESS. IV INTACT AND PATENT. BED IN LOW POSITION. CALL LIGHT WITHIN REACH. WILL BE ENDORSED.
--- NOTE | 2018-09-22 19:59 | NUR ---
PT IN BED AWAKE ORIENTED VERBAL C/O CHEST, BACK AND BILAT LEG PAIN, 7/10 PER ASSESSMENT, NO DISTRESS V/S STABLE HR 86, BP 148/86, RR 20, SATURATING 97% RA NO DISTRESS, OFFERED TYLENOL PO PER PRN ORDER FOR PAIN BUT PT REFUSED, WANTED TO TALK TO THE DOCTOR, DR JOHNSTON AND SOME OF THE RESIDENT STAFF MAKING ROUNDS INFORMED RE PT'S COMPLAINT AND CONCERNS, AWAITING FOR CALL BACK.
--- NOTE | 2018-09-22 20:30 | NUR ---
SHIFT ASSESSMENT DONE PT IS AAO X4 VERBAL AMBULATORY NO DISTRESS DIM LUNGS SOUND AT THE BASES NO COUGHING RT PROT FOR TX, CONT ON IV ATB THERAPY ORDERED NO ADV REACTION, MEDICATED OF PAIN NORCO PO ORDERED, ENCOURAGED TO ELEVATED BLE, IV ACCESS @ LFA INPLACED FLUSHING WELL, PT ASKING FOR SNACKS NEEDS MET, CONT TO MONITOR.
[2018-09-22 22:12] VITALS: BP 153/73
--- NOTE | 2018-09-23 01:56 | NUR ---
NO SIGNIFICANT CHANGES, ASLEEP DURING ROUNDS, CALL LIGHT AT REACH, CONT TO MONITOR.
[2018-09-23 04:59] VITALS: BP 146/69
--- NOTE | 2018-09-23 06:27 | NUR ---
NO SIGNIFICANT CHANGES DURING THE SHIFT, DENIES PAIN NO DISTRESS, IV ATB ZOSYN HANGED ORDERED, NO ADV REACTION, NEEDS MET, CALL LIGHT AT REACH, WILL ENDORSE TO INCOMING SHIFT FOR F/U CARE.
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
[2018-09-23 08:28] VITALS: BP 151/74
--- NOTE | 2018-09-23 09:10 | NUR ---
DUE MEDICATIONS GIVEN. PT REFUSES HEPARIN AT THIS TIME, STATES HE WANTS TO "TAKE IT LATER". BP MED HELD, PT HR 55. NO ACUTE DISTRESS OR DISCOMFORT NOTED AT THIS TIME. PT STATES HE WOULD JUST LIKE "TO SLEEP". PER REQUEST, PT DOOR CLOSED. CALL LIGHT WITHIN REACH.
--- NOTE | 2018-09-23 10:31 | NUR ---
P.T. NOTE PATIENT REFUSED TO BE SEEN BY P.T. THIS MORNING, STATES FEELING TIRED DUE TO NOT GETTING MUCH SLEEP THE NIGHT BEFORE, WILL ATTEMPT AGAIN LATER.
--- NOTE | 2018-09-23 13:19 | NUR ---
PT SITTING UP AT BEDSIDE WITH NO ACUTE DISTRESS OR DISCOMFORT NOTED. DUE MED ADMINISTERED. PT TOLERATED WELL. PT COMPLAINING ABOUT FOOD AND SERVICE. STATED "IT TOOK 15 MIN TO GET A BREAD ROLL". ALL CONCERNS ADDRESSED AT THIS TIME. WILL CONTINUE TO MONITOR. SAFETY MAINTAINED.
--- NOTE | 2018-09-23 15:36 | NUR ---
PHYSICAL THERAPY DAILY NOTES CO-SIGN All documentation done by the Brand Coordinator for 09/23/18 has been reviewed. I agree with the documentation. Reviewed/Co-Signed by: Lulú Deras PT Documentation Done by:JAMEL BERRY PTA
--- NOTE | 2018-09-23 16:54 | NUR ---
CALLED [facility], SPOKE TO MILDRED. GAVE REPORT, ALL QUESTIONS ANSWERED. ESTIMATED ANIMAL FEEDER TIME IS 1800.
[2018-09-23 17:00] VITALS: BP 142/70; BP 156/80
--- NOTE | 2018-09-23 17:15 | NUR ---
DISCHARGE INSTRUCTIONS/EDUCATION PROVIDED TO PATIENT. PT VERBALIZES UNDERSTANDING. 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 ALL QUESTIONS/CONCERNS ADDRESSED. PT TO BE TRANSFERRED TO [facility].
--- NOTE | 2018-09-23 18:55 | NUR ---
PT COMPLAINING OF PAIN TO RIGHT LEG/SPASM. ASKING FOR NORCO. RESIDENT AWARE, WILL PUT IN ORDER DOSE.
--- NOTE | 2018-09-23 19:31 | NUR ---
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 PT DISCHARGED. ALL NEEDS MET. SAFETY MAINTAINED.
== END 2018-09-23 19:15 | DRG 193 ==
LOC: ED 13:06 → MU 16:51 → DU 16:51 → MU 09-16 18:06
PROVIDERS: Emergency Medicine; ADMIT Internal Medicine
DX: J18.9 Pneumonia, unspecified organism (principal); J96.01 Acute respiratory failure with hypoxia; C79.51 Secondary malignant neoplasm of bone; J44.1 Chronic obstructive pulmonary disease with (acute) exacerbation; I16.0 Hypertensive urgency; Z96.643 Presence of artificial hip joint, bilateral; Z59.0 Homelessness; Z68.35 Body mass index [BMI] 35.0-35.9, adult; Z85.46 Personal history of malignant neoplasm of prostate; Z91.19 Patient's noncompliance with other medical treatment and regimen
CPT/HCPCS: 36415; 83880; 84439; 97110-GP; 97530-GP; G0378; G0480; J0360; J0456; J0696; J1644; J2543; J7030; J7040; J7050; J7060; J7620; Q0092

== ENCOUNTER 2019-01-13 18:54 | Emergency (ER) | payer OTHER, MEDICAID ==
[~2019-01-13] VITALS: Ht 170.2 cm; Wt 99.8 kg
[~2019-01-13 18:54] MED LIST changes: +LIO10 PO; +NOR5 PO; +ZITHROMAX TRI-500 MG PO
[2019-01-13 19:05] VITALS: Ht 170.2 cm; Wt 99.8 kg
[2019-01-13 19:45] LABS: BASOPHIL % 0.1 % (0-2); PLATELET COUNT 216 x10^3mcL (130-400); RED CELL DISTRIBUTION WIDTH 13.6 % (11.5-14.5)
[2019-01-13 19:54] LABS: CALCIUM 7.8 mg/dL (8.5-10.1); CARBON DIOXIDE 29.4 mmol/L (21-32); CHLORIDE SERUM 107 mmol/L (98-107); CREATININE SERUM 0.9 mg/dL (0.7-1.3); GFR1 > 60 mL/min; GLUCOSE SERUM 104 mg/dL (74-106); POTASSIUM SERUM 4.3 mmol/L (3.5-5.1); SODIUM SERUM 142 mmol/L (136-145)
[2019-01-13 19:58] LABS: ALKALINE PHOSPHATASE 97 U/L (46-116); ALT/SGPT 17 U/L (16-63); AST/SGOT 9 U/L (15-37); BILIRUBIN TOTAL 0.56 mg/dL (0.20-1.00); TOTAL PROTEIN, SERUM 6.7 g/dL (6.4-8.2)
[2019-01-13 20:03] LABS: ALBUMIN 3.1 g/dL (3.4-5.0)
[2019-01-14 04:47] VITALS: BP 117/55
== END 2019-01-14 07:30 | disposition home or self-care (01) ==
LOC: ED 18:54
PROVIDERS: Emergency Medicine
DX: S30.0XXA Contusion of lower back and pelvis, initial encounter (principal); S09.8XXA Other specified injuries of head, initial encounter; I10 Essential (primary) hypertension; Z85.46 Personal history of malignant neoplasm of prostate; W18.39XA Other fall on same level, initial encounter; Y93.89 Activity, other specified; Y92.098 Other place in other non-institutional residence as the place of occurrence of the external cause; Y99.8 Other external cause status
CPT/HCPCS: 36415; G0480

== ENCOUNTER 2019-02-04 23:06 | Emergency (ER) | payer OTHER, MEDICAID ==
[~2019-02-04] VITALS: Ht 167.6 cm; Wt 92.1 kg
[2019-02-04 23:48] VITALS: Ht 167.6 cm; Wt 92.1 kg
[2019-02-05 06:21] VITALS: BP 122/84
== END 2019-02-05 06:21 | disposition home or self-care (01) ==
LOC: ED 23:06
DX: S20.211A Contusion of right front wall of thorax, initial encounter (principal); M79.645 Pain in left finger(s); J45.909 Unspecified asthma, uncomplicated; M19.90 Unspecified osteoarthritis, unspecified site; Z85.830 Personal history of malignant neoplasm of bone; Z85.46 Personal history of malignant neoplasm of prostate; Z88.6 Allergy status to analgesic agent; Z88.5 Allergy status to narcotic agent; W18.39XA Other fall on same level, initial encounter; Y93.89 Activity, other specified; Y92.89 Other specified places as the place of occurrence of the external cause; Y99.8 Other external cause status